=== PATIENT | male | born 1975 | race Two or more races ===

== ENCOUNTER 2019-10-11 08:34 | Emergency (ER) | payer SELFPAY ==
[~2019-10-11] VITALS: Ht 180.3 cm; Wt 96.9 kg
[~2019-10-11 08:34] MED LIST: CARI350T PO; CYCL5TAB PO; GABA300C PO; OXYC-307 PO
--- NOTE | 2019-10-11 08:48 | NUR ---
PT PRESENTED TO ED D/T SYNCOPAL EPISODE LAST NIGHT. +LOC. PT STATES HIT "TOP OF THE HEAD." 910 HEAD PAIN. DENIES NECK PAIN. CHRONIC BACK PAIN. +ETOH. PT STATES DRINKS "ABOUT 2 PINTS A DAY."
--- NOTE | 2019-10-11 08:52 | NUR ---
PA AT BEDSIDE EVALUATING PT.
[2019-10-11] MEDS ORDERED: ONDANSETRON ODT 4 MG PO ONE (09:00)
[2019-10-11] MEDS ORDERED: ONDANSETRON ODT 4 MG ONE (09:03)
[2019-10-11] MEDS ORDERED: MORPHINE SULFATE 4 MG/ML, 1ML ONE ×2 (09:03→09:34)
[2019-10-11] MEDS: MORPHINE SULFATE 4 MG/ML, 1ML IVPush PRN ×2 (09:11→09:36)
--- NOTE | 2019-10-11 09:13 | NUR ---
PIV ACCESS OBTAINED, 18 R AC. MEDICATION ADMINISTERED FOR 01/08 DOOLEY.
--- NOTE | 2019-10-11 09:36 | NUR ---
2/2 DOSES OF MORPHINE ADMINISTERED FOR 10/10 HEAD PAIN. HYPERTENSIVE NOTED SEE VS DOCUMENTATION. RN TO REASSESS BP ONCE PT PAIN SUBSIDES.
--- NOTE | 2019-10-11 09:36 | NUR ---
RN SENT BLOOD WORK TO LAB.
[2019-10-11 09:47] LABS: BASOPHILS # (AUTO) 0.02 x10^3/uL (0-0.1); BASOPHILS % (AUTO) 0 % (0-1); EOSINOPHILS # (AUTO) 0.01 x10^3/uL (0-0.4); EOSINOPHILS % (AUTO) 0 % (1-7); LYMPHOCYTES # (AUTO) 1.65 x10^3/uL (1-3.4); LYMPHOCYTES % (AUTO) 17 % (22-44); MD NO; MEAN CORPUSCULAR HEMOGLOBIN 32.5 pg (27.5-34.5); MEAN CORPUSCULAR HGB CONC 33.6 g/dL (33.2-36.2); MEAN CORPUSCULAR VOLUME 96.6 fL (81-97); MEAN PLATELET VOLUME 8.4 fL (7.4-10.4); MONOCYTES # (AUTO) 0.61 x10^3/uL (0.2-0.8); MONOCYTES % (AUTO) 6 % (2-9); NEUTROPHILS # (AUTO) 7.19 x10^3/uL (1.8-6.8); NEUTROPHILS % (AUTO) 76 % (42-75); PLATELET COUNT 274 x10^3/uL (130-400); RED BLOOD COUNT 4.46 x10^6/uL (4.38-5.82); RED CELL DISTRIBUTION WIDTH 13.3 % (9.4-14.8)
[2019-10-11 09:56] LABS: ALANINE AMINOTRANSFERASE 45 U/L (12-78); ALBUMIN 3.6 g/dL (3.4-5.0); CALCIUM 8.6 mg/dL (8.5-10.1); CREATININE 1.11 mg/dL (0.7-1.3)
[2019-10-11 09:57] LABS: ALKALINE PHOSPHATASE 74 U/L (45-117); BILIRUBIN,TOTAL 0.3 mg/dL (0.2-1.0); TOTAL PROTEIN 7.7 g/dL (6.4-8.2)
--- NOTE | 2019-10-11 10:05 | NUR ---
RN REASSESSED PAIN AFTER 2ND DOSE OF MORPHINE WAS ADMINISTERED PER EMAR. PT STATING HEAD IS "THROBBING" STILL. LABS PENDING. RN TO CONTINUE TO MONITOR.
[2019-10-11 10:27] LABS: ANION GAP 7 mmol/L (5-15); CHLORIDE 107 mmol/L (98-107)
[2019-10-11] MEDS ORDERED: KETOROLAC 30 MG/1 ML ONE (10:43)
[2019-10-11] MEDS ORDERED: DIPHENHYDRAMINE 50 MG/ML, 1ML ONE (10:43)
--- NOTE | 2019-10-11 10:47 | NUR ---
PT MEDICATED PER EMAR FOR 10/10 THROBBING HEAD PAIN.
[2019-10-11] MEDS ORDERED: KETOROLAC 30 MG/1 ML IVPush ONE (11:00)
[2019-10-11] MEDS ORDERED: DIPHENHYDRAMINE 50 MG/ML, 1ML IVPush ONE (11:00)
--- NOTE | 2019-10-11 11:05 | NUR ---
PT STATES 7/10 HEAD PAIN AT THIS TIME. RN TO PUT PT UP FOR RECHECK.
[2019-10-11] MEDS ORDERED: LORazepam 1MG TABLET ONE (11:09)
--- NOTE | 2019-10-11 11:11 | NUR ---
RN DISCUSSED HTN WITH PA AND . NEW MEDICATION TO ADMINISTER. MEDICATION ADMINSITERED PER EMAR.
[2019-10-11] MEDS ORDERED: LORazepam 1MG TABLET PO ONE (11:30)
--- NOTE | 2019-10-11 11:34 | NUR ---
PT STILL HYPERTENSIVE AT THIS TIME. RN TO INFORM PROVIDERS.
[2019-10-11 11:49] VITALS: BP 158/101
--- NOTE | 2019-10-11 11:57 | NUR ---
PT DC HOME IN A STABLE CONDITION. PIV WAS REMOVED WITH TIP INTACT. DC INSTRUCTIONS WERE DISCUSSED WITH PT. PT VERBALIZED UNDERSTANDING. NO FURTHER QUESTIONS OR CONCERNS EXPRESSED AT THAT TIME. PT AMBULATED WITH RN AND S.O. TO DC DESK. STEADY GAIT.
== END 2019-10-11 11:59 | disposition home or self-care (01) ==
LOC: ED 09:07
DX: S09.90XA Unspecified injury of head, initial encounter (principal); I10 Essential (primary) hypertension; M54.2 Cervicalgia; F10.239 Alcohol dependence with withdrawal, unspecified; W18.30XA Fall on same level, unspecified, initial encounter; Y93.89 Activity, other specified; Y92.89 Other specified places as the place of occurrence of the external cause; Y99.8 Other external cause status; Y90.0 Blood alcohol level of less than 20 mg/100 ml
CPT/HCPCS: 36415; 70450; 72125; 80053; 80307; 85025; 93005; 96374; 96375; 99285; J1200; J1885; J2270; Q0162